=== PATIENT | male | born 1955 | race African-American/Black ===

== ENCOUNTER 2021-09-28 23:40 | Emergency (ER) | payer OTHER ==
[2021-09-28] MEDS ORDERED: SODIUM CHLORIDE 0.9% 1,000 ML IV STA (23:44)
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
[2021-09-28 23:52] VITALS: BP 99/72; PULSE 71; RESP 18; TEMP 98
== END 2021-09-29 01:07 | disposition home or self-care (01) ==
LOC: EC 23:40
DX: R41.82 Altered mental status, unspecified (principal)
CPT/HCPCS: 99284